=== PATIENT | female | born 1980 | race Caucasian/White ===

== ENCOUNTER 2021-09-28 18:16 | Emergency (ER) | payer OTHER, SELFPAY ==
[2021-09-28 18:46] VITALS: BP 104/64; PULSE 77; RESP 16; TEMP 36.7; O2SAT 98; BMI 34.0
[2021-09-28 23:57] LABS: Strep A Nucleic Acid Negative (Negative)
--- NOTE | 2021-09-28 23:59 | ED.EAR ---
HPI - Ear Problem General Chief complaint: Ear Problems Stated complaint: bilateral ear infection Time Seen by Provider: 09/28/21 22:17 Source: patient Mode of arrival: ambulatory History of Present Illness HPI Narrative: 41-year-old female with no significant past medical history presenting to the ED complaining of bilateral ear pain > right x6 days, and sore throat x today. Admits was seen by PCP on Sunday, reportedly had cerumen impaction and has been using OTC remedies without relief. Reports chronic drainage from ears, unchanged/not worsening. Also reports chills. Denies fever, hearing loss, cough, SOB/CP, difficulty/inability to swallow MD Complaint: ear pain Location: bilateral Duration: constant Severity: moderate Relieving factors: nothing Related Data Previous Rx's Medication Instructions Recorded cefdinir 300 mg capsule 300 mg PO BID 7 days #14 caps 09/28/21 ciprofloxacin 0.3 %-dexamethasone 4 drp otic (ears) BID 7 days #7.5 09/28/21 0.1 % ear drops,suspension mL (Ciprodex) Allergies Allergy/AdvReac Type Severity Reaction Status Date / Time Penicillins [PENICILLINS] Allergy Unknown Unknown Verified 09/28/21 18:45 Review of Systems Review of Systems: Constitutional: No Fever, No Chills, No Fatigue, No Malaise ENT/Mouth: No Hearing loss, + Ear Pain, No Nasal Congestion, No Sinus Pain, No Hoarseness, + sore throat, No Rhinorrhea, No Swallowing Difficulty Eyes: No Eye Pain, No Swelling, No Redness, No Vision Changes Cardiovascular: No Chest Pain, No SOB, No Edema, No Palpitations Respiratory: No Cough, No Sputum, No Dyspnea Gastrointestinal: No Nausea, No Vomiting, No Diarrhea, No Constipation, No Abdominal pain Genitourinary: No Dysuria, No Urinary Frequency, No Hematuria, No Flank Pain, No Urinary Flow Changes Musculoskeletal: No joint pain, No Myalgias, No Joint Swelling Skin: No Skin Lesions, No rash Neuro: No Weakness, No Dizziness, No Headache Yes all other systems are reviewed and are negative [facility] Past Medical History Attestation statement: The following information was validated with the patient. Social History Social History Advance Directives: No Advance Directives Information Provided: No Physical Exam Vital Signs: Vital Signs: Last Vital Signs Temp 98.0 F 09/28/21 18:46 Pulse 77 09/28/21 18:46 Resp 16 09/28/21 18:46 BP 104/64 09/28/21 18:46 Pulse Ox 98 09/28/21 18:46 O2 Del Method 09/28/21 18:46 BMI result Body Mass Index 34.0 Const: General: cooperative, healthy appearing, no acute distress, alert and awake Orientation/consciousness: patient oriented x3 Limitations: no limitations HEENT: Head: Yes normal to inspection and Yes atraumatic Ears: hearing grossly normal bilaterally, mastoids normal, Abnormal EAC present edema bilateral and EAC tenderness bilateral, external ear abnormal auricular tenderness bilateral and pain with movement of external ear bilateral and TM abnormal dull bilateral and wth effusion (bilaterally) General nose exam: Normal external nose present Face and sinus: Yes normal facial exam Mouth: Normal oral and palatal mucosa present Throat: Yes uvula midline, Yes abnormal tonsil (tonsil stone noted to R tonsil), No peritonsillar mass, No uvula laterally displaced and No uvular edema Eyes: General: appearance normal, both eyes and all related structures EOM: EOMs intact bilaterally Neck: Other: + periauricular and mild submandibular lymphadenopathy Neck: Yes normal visual inspection, Yes no meningeal signs and No anterior neck swelling Resp: Effort & Inspection: normal respiratory effort and no respiratory distress Cardio: Rate: regular rate Heart sounds: S1 normal heart sound present and S2 normal heart sound present Skin: Rashes: no rashes Wounds: no wounds Neuro: General: patient oriented x3, tone normal and no meningeal signs Gait exam (Neuro): Normal gait present Extrem: General: Yes normal to inspection Course Course Course Narrative: -rapid strep negative Patient discharged prior to results of COVID-19 and influenza testing, will call with positive results only MDM - Ear MDM Narrative Medical decision making narrative: 41-year-old female with no significant past medical history presenting to the ED complaining of bilateral ear pain > right x6 days, and sore throat x today. On exam vital signs stable, NAD/nontoxic appearing, physical exam as above consistent with otitis media and otitis externa. Mastoids WNL. Oropharynx with appreciable right-sided tonsil stone, no exudate or erythema, uvula midline. No evidence of [employer]. Talking in complete sentences. Patient with strong gag reflex unable to dislodge stone Plan: COVID-19/influenza testing, rapid strep, p.o. antibiotics and antibiotic ear drops Differential Diagnosis Differential diagnosis: Likely otitis externa, otitis media and cerumen impaction Medical Records Attestation: I reviewed the patient's medical records. Lab Data Attestation: I reviewed the patient's lab results. Labs: Lab Results 09/28/21 Range/Units 23:42 S. pyogenes GrpA KATIE Negative (Negative) Discharge Plan Discharge Clinical Impression: Otitis externa, Otitis media Patient Disposition: Home, Self-Care Instructions: Otitis Externa (ED), Ear Infection (ED) Additional Instructions: You have an internal and external ear infection. Augmentin is an antibiotic please take as prescribed for additional Ciprodex drops are antibiotic/steroid drops which will help with her external ear pain and swelling. Take Tylenol additionally for pain Please follow-up with her doctor Prescriptions: New cefdinir 300 mg capsule 300 mg PO BID 7 Days Qty: 14 0RF ciprofloxacin-dexamethasone [Ciprodex] 0.3-0.1 % drops,suspension 4 drp otic (ears) BID 7 Days Qty: 7.5 0RF Referrals: Tommy Howard [Physician] - 3 days
[2021-09-29 00:08] LABS: COVID-19 Test Negative (Negative); IDNOW Serial# 16C4AD1C; Influenza A Negative (Negative); Influenza B2 Negative (Negative)
== END 2021-09-29 00:32 | disposition home or self-care (01) ==
PROVIDERS: Physician Assistant; Emergency Provider Emergency Medicine Emergency Medical Services
DX: H60.93 Unspecified otitis externa, bilateral (principal); H66.93 Otitis media, unspecified, bilateral; Z20.822 Contact with and (suspected) exposure to COVID-19; J02.9 Acute pharyngitis, unspecified
CPT/HCPCS: 87502; 87635; 87651; 99283

== ENCOUNTER 2022-07-31 23:21 | Emergency (ER) | payer OTHER, SELFPAY ==
[2022-07-31 23:28] VITALS: BP 130/75; PULSE 79; RESP 18; TEMP 36.7; O2SAT 98; BMI 27.9
[2022-08-01] VITALS: BP 113/58; PULSE 99; RESP 18; TEMP 36.4; O2SAT 98
--- NOTE | 2022-08-01 00:20 | ED_ITS ---
HPI - General Adult General Chief complaint: OB Stated complaint: Engorged breast with pain Time Seen by Provider: 07/31/22 23:56 Source: patient Mode of arrival: ambulatory Limitations: no limitations History of Present Illness HPI narrative: 41 yold female presents to the ED bilateral engorged breasts. patient states she stopped breast feeding her son because he was biting her nipples. patient states she did not pump or try to self excrete the breast milk and now has bilateral breast pain due to engorged. patient denies any redness of the breast, fever, chills, chest pain, or shortness of breath Related Data Previous Rx's Medication Instructions Recorded cefdinir 300 mg capsule 300 mg PO BID 7 days #14 caps 09/28/21 ciprofloxacin 0.3 %-dexamethasone 4 drp otic (ears) BID 7 days #7.5 09/28/21 0.1 % ear drops,suspension mL (Ciprodex) cephalexin 500 mg capsule 500 mg PO QID 7 days #28 caps 08/01/22 ibuprofen 400 mg tablet 400 mg PO Q6H PRN fever or pain 7 08/01/22 days #28 tabs Allergies Allergy/AdvReac Type Severity Reaction Status Date / Time Penicillins [PENICILLINS] Allergy Unknown Unknown Verified 09/28/21 18:45 Review of Systems Review of Systems: bilateral breast engorgement Yes all other systems are reviewed and are negative [facility] Social History Social History Advance Directives: No Advance Directives Information Provided: Yes Physical Exam ED Vital Signs: Vital Signs - 24 hr 07/31/22 23:28 08/01/22 00:00 Temperature 98.1 F 97.6 F Pulse Rate 79 99 Respiratory Rate 18 18 Blood Pressure 130/75 113/58 L Pulse Oximetry 98 98 Oxygen Delivery Method Room Air Room Air BMI result Body Mass Index 27.9 Const General: cooperative, healthy appearing, comfortable, no acute distress, well developed, alert, awake and Physically active Orientation/consciousness: oriented to person, oriented to place, oriented to time and patient oriented x3 HENMT Head: Yes normal to inspection, Yes No palpable skull fracture present, Yes normocephalic and No atraumatic Eyes General: appearance normal, both eyes and all related structures Neck Neck: Yes normal visual inspection, Yes full ROM, Yes no lymphadenopathy, Yes no meningeal signs, Yes trachea midline, Yes supple, No anterior neck swelling and No tender Chest Other: Positive for bilateral breast swelling/engorgement. negative for warmth or erythema of the breasts. Breasts are tender. Chest palpation & inspection: normal inspection of the chest and normal palpation of entire chest wall Resp Effort & Inspection: normal respiratory effort and able to speak in complete sentences Auscultation: clear to auscultation bilaterally Cardio Jugular venous distension: no JVD Heart sounds: S1 normal heart sound present and S2 normal heart sound present GI Inspection: Yes normal to inspection and No abdominal wall ecchymosis Palpation (GI): Soft to palpation, not firm, nontender, no guarding and not rigid General: No CVA tenderness and Yes no CVA tenderness Back/Spine/Pelvis Back: no CVA tenderness, No CVA tenderness and No back tenderness Skin General skin exam: no rashes or lesions noted and elasticity normal Neuro General: oriented to person, oriented to place, oriented to time, patient oriented x3, gait normal, tone normal, moves all extremities, Normal light touch and pain sensation, no meningeal signs, no focal motor deficits, CN's II-XI intact bilaterally and normal sensation to monofilament Extrem General: Yes normal to inspection and Yes full ROM Psych Appearance: grossly normal, well kempt and not disheveled Course Course Course Narrative: 41 yold femalae with bilateral breast swelling/engorgement. Reevaluation(s) Reevaluation #1: Patient vital signs are stable. No need for labs imaging. Breasts are not red or warmth. patient educated on necessity for her to use a pump to secrete breast or for her son to resume . Patient informed she should not suddenly stop breast-feeding she has to wean. Patient educated on not wearing tight clothes. Drinking plenty of fluids. Taking Motrin or Tylenol. Patient also informed to use cold compress or warm compress to place on breast. Patient also informed to take warm shower. patient informed to use nipple butter. Although presently no signs of mastitis due to negative for fever, redness, or warmth will discharge with antibiotics incase engorgement progressed to mastitis. Time: 00:29 Medications Administered Discontinued Medications Generic Name Dose Route Start Last Admin Trade Name Freq PRN Reason Stop Dose Admin Ibuprofen 800 mg 08/01/22 00:19 08/01/22 00:23 Ibuprofen 800 Mg Tablet PO 08/01/22 00:20 800 mg ONCE ONE Administration Medical Decision Making Medical Decision Making [facility] Narrative: 39 yold female presents to the ED bilateral breast engorgement due to setting stopping of . Presently history physical exam does not indicate abscess, mastitis, of cellulitis. But was still discharged with antibiotics in case there is progression of breast engorgement to mastitis due to patient having swelling of breast and very painful. No labs imaging needed. Patient educated on supportive care to her believe breast engo Differential Diagnosis Differential Diagnoses: The differential diagnosis associated with the presentation includes ( Cellulitis, breast abscess, mastitis,) Admission/Observation Consideration of admission/observation: Escalation of care including admission/observation considered Tests considered The following testing was considered but not selected: ultrasound Prescription Management I considered prescription management with: Pain Medication and Antibiotic Discharge Plan Discharge Clinical Impression: Breast engorgement Patient Disposition: Home, Self-Care Instructions: and Breast Engorgement (ED) Additional Instructions: return to the ED immediately for any redness of the breast, worsening pain, increased swelling, fever, chills, chest pain, shortness of breath, or any other concerning symptoms. Please follow with the primary care provider and OBGYN. You are being discharged with antibiotics in case breast engorgement leads to mastitis. Resume or use a pump. Recommend warm showers, drinking plenty of fluids, and placing cold or warm compress on breast. Avoid tight- fitting clothes or bras. Prescriptions: New cephalexin 500 mg capsule 500 mg PO QID 7 Days Qty: 28 0RF ibuprofen 400 mg tablet 400 mg PO Q6H PRN (Reason: fever or pain) 7 Days Qty: 28 0RF No Action cefdinir 300 mg capsule 300 mg PO BID 7 Days Qty: 14 0RF ciprofloxacin-dexamethasone [Ciprodex] 0.3-0.1 % drops,suspension 4 drp otic (ears) BID 7 Days Qty: 7.5 0RF Referrals: Te Mcghee MD [Physician] - (Breast engorgement) Interventions: ED Discharge Assessment Last Done: 08/01/22 00:36 Discharge Date/Time: 08/01/22 00:41 Print Language: Georgian
--- NOTE | 2022-08-01 00:20 | PC.NURSE ---
Pt given warm compresses to place on breasts at this time
[2022-08-01] MEDS: Ibuprofen 800 MG TABLET PO (00:23)
== END 2022-08-01 00:41 | disposition home or self-care (01) ==
PROVIDERS: Emergency Provider Internal Medicine
DX: N64.59 Other signs and symptoms in breast (principal)
CPT/HCPCS: 99283

== ENCOUNTER 2022-12-05 18:48 | Emergency (ER) | payer OTHER, SELFPAY ==
[2022-12-05 18:59] VITALS: BP 109/57; PULSE 74; RESP 18; TEMP 36.9; O2SAT 97; BMI 35.0
--- NOTE | 2022-12-05 18:59 | ED_ITS ---
HPI - Ear Problem General Chief complaint: Ear Problems Stated complaint: ear infection Time Seen by Provider: 12/05/22 19:04 Source: patient, RN notes reviewed and old records reviewed Mode of arrival: ambulatory History of Present Illness HPI Narrative: 42-year-old female with no significant past medical history presenting to the ED complaining of bilateral ear pain x 3 days worsening today w/ chills. Admits to decreased hearing & yellow drainage from ears. Reports pain radiates throat. denies fever, cough, SOB, difficulty/inability to swallow, recent swimming MD Complaint: ear pain, ear discharge and decreased hearing Related Data Previous Rx's Medication Instructions Recorded cefdinir 300 mg capsule 300 mg PO BID 7 days #14 caps 09/28/21 ciprofloxacin 0.3 %-dexamethasone 4 drp otic (ears) BID 7 days #7.5 09/28/21 0.1 % ear drops,suspension mL (Ciprodex) cephalexin 500 mg capsule 500 mg PO QID 7 days #28 caps 08/01/22 ibuprofen 400 mg tablet 400 mg PO Q6H PRN fever or pain 7 08/01/22 days #28 tabs ciprofloxacin 0.3 %-dexamethasone 4 drp otic (ears) BID 7 days #7.5 12/05/22 0.1 % ear drops,suspension mL (Ciprodex) Allergies Allergy/AdvReac Type Severity Reaction Status Date / Time Penicillins [PENICILLINS] Allergy Unknown Unknown Verified 09/28/21 18:45 Review of Systems Review of Systems: Constitutional:No Fever, No Chills ENT/Mouth: + Ear Pain, No Nasal Congestion, No Sinus Pain, No Hoarseness, + sore throat, No Rhinorrhea, No Swallowing Difficulty Cardiovascular: No Chest Pain, No SOB Respiratory: No Cough, No Sputum Gastrointestinal: No Nausea, No Vomiting, No Abdominal pain Musculoskeletal: No joint pain Skin: No Skin Lesions, No rash Neuro: No Weakness Yes all other systems are reviewed and are negative Constitutional: Constitutional: Reports as per [facility] Past Medical History Attestation statement: The following information was validated with the patient. Source: old records reviewed Physical Exam Vital Signs: Vital Signs: Last Vital Signs Temp 98.5 F 12/05/22 18:59 Pulse 74 12/05/22 18:59 Resp 18 12/05/22 18:59 BP 109/57 L 12/05/22 18:59 Pulse Ox 97 12/05/22 18:59 O2 Del Method Room Air 12/05/22 18:59 BMI result Body Mass Index 35.0 Const: General: cooperative, healthy appearing and no acute distress Orientation/consciousness: patient oriented x3 Limitations: no limitations HEENT: Head: Yes normal to inspection and Yes atraumatic Ears: hearing grossly normal bilaterally, mastoids normal, Abnormal EAC present edema bilateral, EAC tenderness bilateral and otic discharge (bilaterally) occluded by discharge bilateral and external ear abnormal auricular tenderness bilateral General nose exam: Normal external nose present Face and sinus: Yes normal facial exam Mouth: Normal oral and palatal mucosa present and no drooling Throat: Yes posterior oropharynx normal, Yes tonsils normal, Yes uvula midline, No peritonsillar mass and No uvular edema Eyes: General: appearance normal, both eyes and all related structures EOM: EOMs intact bilaterally Neck: Neck: Yes normal visual inspection, Yes no meningeal signs and No anterior neck swelling Resp: Effort & Inspection: normal respiratory effort and no respiratory distress Cardio: Rate: regular rate Skin: Rashes: no rashes Wounds: no wounds Neuro: General: patient oriented x3, tone normal and no meningeal signs Cranial nerves: Yes CN's II-XII intact bilaterally Gait exam (Neuro): Normal gait present Extrem: General: Yes normal to inspection Medical Decision Making Medical Decision Making MDM Narrative: 42-year-old female with no significant past medical history presenting to the ED complaining of bilateral ear pain x 3 days worsening today w/ chills. On exam vital signs stable, NAD, nontoxic appearing, physical exam consistent with bilateral otitis externa. Mastoids WNL, TMs obscured by debris/external canal swelling. Oropharynx WNL, uvula midline, talking in complete sentences. Low suspicion for otitis media, mastoiditis, chronic otitis externa, pharyngitis Plan: Ciprodex drops, ENT follow-up Results discussed with patient including worrisome signs and symptoms and strict return precautions, and when to return to the emergency department. They verbalized understanding and feel safe for discharge at this time. Differential Diagnosis Differential Diagnoses: The differential diagnosis associated with the presentation includes As above External Record Review External record reviewed: Inpatient record, Office record, Outpatient record, Prior outpatient labs, Prior outpatient radiology, Primary care record and Outside ED record Tests considered The following testing was considered but not selected: As above Prescription Management I considered prescription management with: Pain Medication and Antibiotic Discharge Plan Discharge Clinical Impression: Otitis externa Patient Disposition: Home, Self-Care Instructions: Otitis Externa (DC) Additional Instructions: You have bilateral external ear infections Ciprodex is an antibiotic steroid drop please use as prescribed Take Tylenol and Motrin for pain If symptoms persist or worsen, you have fever, persistent or unremitting pain re turn to the ED Prescriptions: New ciprofloxacin-dexamethasone [Ciprodex] 0.3-0.1 % drops,suspension 4 drp otic (ears) BID 7 Days Qty: 7.5 0RF No Action cefdinir 300 mg capsule 300 mg PO BID 7 Days Qty: 14 0RF ciprofloxacin-dexamethasone [Ciprodex] 0.3-0.1 % drops,suspension 4 drp otic (ears) BID 7 Days Qty: 7.5 0RF cephalexin 500 mg capsule 500 mg PO QID 7 Days Qty: 28 0RF ibuprofen 400 mg tablet 400 mg PO Q6H PRN (Reason: fever or pain) 7 Days Qty: 28 0RF Referrals: Tommy Howard [Physician] -
== END 2022-12-05 19:22 | disposition home or self-care (01) ==
LOC: HO.ED 19:22
PROVIDERS: Emergency Provider Emergency Medicine
DX: H60.93 Unspecified otitis externa, bilateral (principal); H92.03 Otalgia, bilateral
CPT/HCPCS: 99282; 99283

== ENCOUNTER 2023-06-07 21:29 | Emergency (ER) | payer OTHER, SELFPAY ==
[2023-06-07 22:01] VITALS: BP 114/68; PULSE 66; RESP 18; TEMP 36.8; O2SAT 99; BMI 36.3
--- NOTE | 2023-06-08 00:12 | PC.NURSE ---
pt was using her ear buds and noticed that a small solitario piece came off. pt thinks this might be in her ear, pt states her ear feels blocked.
[2023-06-08 00:13] VITALS: BP 116/66; PULSE 70; RESP 16; TEMP 36.8; O2SAT 97
--- NOTE | 2023-06-08 01:01 | ED.EAR ---
HPI - Ear Problem General Chief complaint: Ear Problems Stated complaint: rt ear pain Time Seen by Provider: 06/07/23 23:57 Source: patient Mode of arrival: ambulatory Limitations: no limitations History of Present Illness HPI Narrative: Patient comes to the emergency room complaining of foreign body sensation in the right ear. Patient states that she believes that the tip of her ear bud is stuck in her ear but she has not sure. Patient noticed that the tip is missing and is not sure if it is inside of her ear. Patient denies pain. Related Data Previous Rx's Medication Instructions Recorded cefdinir 300 mg capsule 300 mg PO BID 7 days #14 caps 09/28/21 ciprofloxacin 0.3 %-dexamethasone 4 drp otic (ears) BID 7 days #7.5 09/28/21 0.1 % ear drops,suspension mL (Ciprodex) cephalexin 500 mg capsule 500 mg PO QID 7 days #28 caps 08/01/22 ibuprofen 400 mg tablet 400 mg PO Q6H PRN fever or pain 7 08/01/22 days #28 tabs ciprofloxacin 0.3 %-dexamethasone 4 drp otic (ears) BID 7 days #7.5 12/05/22 0.1 % ear drops,suspension mL (Ciprodex) Allergies Allergy/AdvReac Type Severity Reaction Status Date / Time Penicillins [PENICILLINS] Allergy Unknown Unknown Verified 09/28/21 18:45 Review of Systems Review of Systems: Constitutional : No Weight loss, No Fever, No Chills, No Night Sweats, No Fatigue, No Malaise ENT/Mouth : No Hearing loss, No Ear Pain, Foreign body sensation in the right ear, No Nasal Congestion, No Sinus Pain, No Hoarseness, No sore throat, No Rhinorrhea, No Swallowing Difficulty Eyes: No Eye Pain, No Swelling, No Redness, No Foreign Body, No Discharge, No Vision Changes Cardiovascular : No Chest Pain, No SOB, No Dyspnea on Exertion, No Orthopnea, No Edema, No Palpitations Respiratory : No Cough, No Sputum, No Wheezing, No Smoke Exposure, No Dyspnea Gastrointestinal : No Nausea, No Vomiting, No Diarrhea, No Constipation, No abdominal Pain, No Hematochezia, No Melena Genitourinary : no irregular bleeding, No Dysuria, No Urinary Frequency, No Hematuria, No Urinary Incontinence, No Urgency, No Flank Pain, No Urinary Flow Changes, No Hesitancy Musculoskeletal : No joint pain, No Myalgias, No Joint Swelling Skin : No Skin Lesions, No rash Neuro : No Weakness, No Numbness, No Paresthesias, No Loss of Consciousness, No Dizziness, No Headache Psych : No Anxiety/Panic, No Depression, No SI/HI/AH/VH, No Social Issues, Heme/Lymph: No Bruising, No Bleeding,No Lymphadenopathy Endocrine : No Polyuria, No Polydipsia, No Temperature Intolerance [facility] Social History Social History Advance Directives: No Advance Directives Information Provided: No Physical Exam Vital Signs: Vital Signs: Last Vital Signs Temp 98.3 F 06/08/23 00:13 Pulse 70 06/08/23 00:13 Resp 16 06/08/23 00:13 BP 116/66 06/08/23 00:13 Pulse Ox 97 06/08/23 00:13 O2 Del Method Room Air 06/08/23 00:13 BMI result Body Mass Index 36.3 Const: Other: Appearance: Alert. Oriented X3. No acute distress. Eyes: Pupils equal, round and reactive to light. ENT: Pharynx normal. normal tympanic membranes, no irritation, no foreign body present in either ear Neck: Normal inspection. Neck supple. No lymph nodes noted. No crepitus CVS: Normal heart rate and rhythm. Pulses normal. Normal S1 and S2 Respiratory: No respiratory distress. Breath sounds normal. No Wheezing. No rales Abdomen: Soft and nontender. No rigidity. No distention. Skin: Skin warm and dry. Normal skin color. Normal skin turgor. Extremities: No lower extremity edema. No Lacerations. No Rash Neuro: Oriented X 3. No motor deficit. No sensory deficit. Moving all extremities. No slurred speech. CN 2 through 12 grossly intact Psych: calm, cooperative, normal affect Medical Decision Making Medical Decision Making MDM Narrative: - I discussed with the patient that she has does not have a foreign body in her ear. Differential Diagnosis Differential Diagnoses: The differential diagnosis associated with the presentation includes ( Foreign body, otitis, otalgia) Discharge Plan Discharge Clinical Impression: Foreign body sensation in ear canal Patient Disposition: Home, Self-Care Instructions: Ear Foreign Body (ED) Additional Instructions: Please follow-up with your primary care physician tomorrow. If you have any worsening or new symptoms, please return to the emergency room or call 911 Prescriptions: No Action cefdinir 300 mg capsule 300 mg PO BID 7 Days Qty: 14 0RF ciprofloxacin-dexamethasone [Ciprodex] 0.3-0.1 % drops,suspension 4 drp otic (ears) BID 7 Days Qty: 7.5 0RF cephalexin 500 mg capsule 500 mg PO QID 7 Days Qty: 28 0RF ibuprofen 400 mg tablet 400 mg PO Q6H PRN (Reason: fever or pain) 7 Days Qty: 28 0RF ciprofloxacin-dexamethasone [Ciprodex] 0.3-0.1 % drops,suspension 4 drp otic (ears) BID 7 Days Qty: 7.5 0RF
[2023-06-08 01:29] VITALS: BP 116/66; PULSE 76; RESP 16; TEMP 36.8; O2SAT 97
== END 2023-06-08 01:30 | disposition home or self-care (01) ==
PROVIDERS: Emergency Provider Emergency Medicine; PCP Internal Medicine
DX: H92.01 Otalgia, right ear (principal)
CPT/HCPCS: 99282; 99283

== ENCOUNTER 2023-10-28 22:08 | Emergency (ER) | payer OTHER, SELFPAY ==
[2023-10-28 22:20] VITALS: BP 129/76; PULSE 90; RESP 18; TEMP 36.4; O2SAT 98; BMI 35.5
--- NOTE | 2023-10-28 23:01 | ED.GENADULT ---
HPI - General Adult General Chief complaint: General Medical Stated complaint: possible insect bite/sting on foot 3 weeks ago Time Seen by Provider: 10/28/23 22:48 History of Present Illness HPI narrative: Patient is a 43-year-old female presents today having initially an itch to the medial aspect of the right ankle. The rash has continue. Is extremely itchy. Patient has been gardening outside. Denies any fever chills. No systemic complaints. She is from home. Related Data Previous Rx's ?Medication ?Instructions ?Recorded cefdinir 300 mg capsule 300 mg PO BID 7 days #14 caps 09/28/21 ciprofloxacin 0.3 %-dexamethasone 4 drp otic (ears) BID 7 days #7.5 09/28/21 0.1 % ear drops,suspension mL (Ciprodex) cephalexin 500 mg capsule 500 mg PO QID 7 days #28 caps 08/01/22 ibuprofen 400 mg tablet 400 mg PO Q6H PRN fever or pain 7 08/01/22 days #28 tabs ciprofloxacin 0.3 %-dexamethasone 4 drp otic (ears) BID 7 days #7.5 12/05/22 0.1 % ear drops,suspension mL (Ciprodex) triamcinolone acetonide 0.5 % 1 appl topical BID rash #15 grams 10/28/23 topical cream Allergies Allergy/AdvReac Type Severity Reaction Status Date / Time Penicillins [PENICILLINS] Allergy Unknown Unknown Verified 10/28/23 22:24 Review of Systems Review of Systems: Positive rash to the right ankle inner aspect Yes all other systems are reviewed and are negative [facility] Past Medical History Attestation statement: The following information was validated with the patient. Social History Social History Do you have a plan to hurt others: No Plan Physical Exam ED Vital Signs: Vital Signs - 24 hr 10/28/23 22:20 Temperature 97.6 F Pulse Rate 90 Respiratory Rate 18 Blood Pressure 129/76 Pulse Oximetry 98 Oxygen Delivery Method Room Air BMI result Body Mass Index 35.5 Appearance: Alert. Oriented X3. No acute distress. Eyes: Pupils equal, round and reactive to light. ENT: Pharynx normal. Neck: Normal inspection. Neck supple. No lymph nodes noted. No crepitus CVS: Normal heart rate and rhythm. Pulses normal. Normal S1 and S2 Respiratory: No respiratory distress. Breath sounds normal. No Wheezing. No rales Abdomen: Soft and nontender. No rigidity. No distention. good BS x4 Skin: Localized rash over the right ankle, inner aspect approximately 3 cm x 3 cm. Seems to be extremely pruritic red raised Extremities: No lower extremity edema. Neurovascular intact to all extremities. No Lacerations. No Rash Neuro: Oriented X 3. No motor deficit. No sensory deficit. Moving all extermities. No slurred speech Medical Decision Making Medical Decision Making MDM Narrative: Patient's symptoms consistent with poison rachna. Will start patient on some topical steroid as symptom is fairly localized. Will have patient follow-up on an outpatient basis in no acute distress no systemic complaints in stable condition Differential Diagnosis Differential Diagnoses: The differential diagnosis associated with the presentation includes Poison rachna, allergic reaction Admission/Observation Consideration of admission/observation: Escalation of care including admission/observation considered Discharge Plan Discharge Clinical Impression: Poison rachna dermatitis Patient Disposition: Home, Self-Care Instructions: Poison Rachna (ED) Prescriptions: New triamcinolone acetonide 0.5 % cream 1 appl topical BID Qty: 15 0RF No Action cefdinir 300 mg capsule 300 mg PO BID 7 Days Qty: 14 0RF ciprofloxacin-dexamethasone [Ciprodex] 0.3-0.1 % drops,suspension 4 drp otic (ears) BID 7 Days Qty: 7.5 0RF cephalexin 500 mg capsule 500 mg PO QID 7 Days Qty: 28 0RF ibuprofen 400 mg tablet 400 mg PO Q6H PRN (Reason: fever or pain) 7 Days Qty: 28 0RF ciprofloxacin-dexamethasone [Ciprodex] 0.3-0.1 % drops,suspension 4 drp otic (ears) BID 7 Days Qty: 7.5 0RF Referrals: Tammie Bustamante MD [Primary Care Provider] - 10/31/23 Print Language: Japanese
[2023-10-28 23:28] VITALS: BP 129/76; PULSE 90; RESP 18; TEMP 36.4; O2SAT 98
== END 2023-10-28 23:29 | disposition home or self-care (01) ==
PROVIDERS: Emergency Provider Emergency Medicine Emergency Medical Services; PCP Internal Medicine
DX: L23.7 Allergic contact dermatitis due to plants, except food (principal)
CPT/HCPCS: 99282

== ENCOUNTER 2024-05-11 12:47 | Emergency (ER) | payer OTHER, SELFPAY ==
--- NOTE | ~2024-05-11 | US_ITS ---
CLINICAL HISTORY: epigastric abd pain rad back US abdomen limited, with color and pulsed Doppler of the portal vein: Comparison: None Findings: Liver is enlarged measuring 19 cm in length with increased echogenicity suggestive of fatty infiltration. Main portal vein Doppler shows antegrade flow. Gallbladder is normal in size. There are no calculi. Gallbladder wall thickness is normal. Common bile duct diameter is 2 mm. No sonographic Holland sign. Right kidney measures 11.6 cm in length. No ascites in the right upper quadrant. Impression: Normal right upper quadrant ultrasound This document has been electronically signed by: Sloan Jamison MD on 05/11/2024 14:16:44
[2024-05-11 12:56] VITALS: BP 118/66; PULSE 73; RESP 18; TEMP 36.6; O2SAT 97; BMI 36.0
--- NOTE | 2024-05-11 12:58 | ED_ITS ---
HPI - Abdominal Pain General Chief Complaint: Abdominal Pain Stated Complaint: pain (gallbladder) Time Seen by Provider: 05/11/24 16:22 Source: patient, RN notes reviewed and old records reviewed Mode of arrival: ambulatory History of Present Illness ED Provider: Angle Devries PA-C HPI narrative: 43-year-old female with no significant past medical history presenting to the ED complaining of epigastric abdominal pain radiating to back x3 days. Admits was seen at urgent care yesterday prescribed omeprazole without relief. Denies CP/SOB, nausea, vomiting, diarrhea, dysuria/hematuria Related Data Previous Rx's ?Medication ?Instructions ?Recorded cefdinir 300 mg capsule 300 mg PO BID 7 days #14 caps 09/28/21 ciprofloxacin 0.3 %-dexamethasone 4 drp otic (ears) BID 7 days #7.5 09/28/21 0.1 % ear drops,suspension mL (Ciprodex) cephalexin 500 mg capsule 500 mg PO QID 7 days #28 caps 08/01/22 ibuprofen 400 mg tablet 400 mg PO Q6H PRN fever or pain 7 08/01/22 days #28 tabs ciprofloxacin 0.3 %-dexamethasone 4 drp otic (ears) BID 7 days #7.5 12/05/22 0.1 % ear drops,suspension mL (Ciprodex) triamcinolone acetonide 0.5 % 1 appl topical BID rash #15 grams 10/28/23 topical cream aluminum-mag hydroxide-simethicone 5 ml PO 5XD PRN dyspepsia #30 mL 05/11/24 200 mg-200 mg-20 mg/5 mL oral susp (Maalox Advanced) Allergies Allergy/AdvReac Type Severity Reaction Status Date / Time Penicillins [PENICILLINS] Allergy Unknown Unknown Verified 05/11/24 13:00 Review of Systems Review of Systems Yes all other systems are reviewed and are negative Constitutional: Reports as per [facility] Past Medical History Attestation statement: The following information was validated with the patient. Source: old records reviewed Social History Social History Advance Directives: No Advance Directives Information Provided: Yes Physical Exam ED Vital Signs: Vital Signs - 24 hr 05/11/24 12:56 05/11/24 16:19 05/11/24 16:46 Temperature 97.9 F 97.8 F 97.8 F Pulse Rate 73 75 75 Respiratory Rate 18 16 16 Blood Pressure 118/66 102/68 102/68 Pulse Oximetry 97 98 98 Oxygen Delivery Method Room Air Room Air Room Air BMI result Body Mass Index 36.0 Const General: cooperative, healthy appearing and no acute distress Orientation/consciousness: patient oriented x3 Limitations: no limitations HENMT Head: Yes normal to inspection and Yes atraumatic Ears: hearing grossly normal bilaterally General nose exam: Normal external nose present Face and sinus: Yes normal facial exam Eyes General: appearance normal, both eyes and all related structures EOM: EOMs intact bilaterally Neck Neck: Yes normal visual inspection and Yes no meningeal signs Resp Effort & Inspection: normal respiratory effort and no respiratory distress Auscultation: clear to auscultation bilaterally Cardio Rate: regular rate Heart sounds: S1 normal heart sound present and S2 normal heart sound present GI Inspection: Yes normal to inspection Palpation (GI): Soft to palpation, nontender, no guarding and not rigid General: Yes no CVA tenderness Back/Spine/Pelvis Back: no CVA tenderness Skin Rashes: no rashes Wounds: no wounds Neuro General: patient oriented x3, tone normal and no meningeal signs Cranial nerves: Yes CN's II-XII intact bilaterally Gait exam (Neuro): Normal gait present Extrem General: Yes normal to inspection Course Course Course Narrative: This is a Rapid Medical Exam performed in triage by Angle Devries PA-C. Full HPI, ROS and PE to be performed by primary ED provider. 43yo F w/no significant past medical history presenting to the ED c/o epigastric abdominal radiating to back x 3 days. Admits was seen at urgent care yesterday prescribed omeprazole without relief. denies N/V/D PE: Abdomen is soft and nontender, no rebound or guarding Plan: EKG, labs, US, (does not want to give urine as give at urgent care yesterday) -1700--no leukocytosis. AST/ALT mildly elevated. Troponin negative. US abdomen limited Impression: Normal right upper quadrant ultrasound 171- on re-evaluation patient reports symptomatic improvement, denies pain at present. Abdomen is soft and nontender. Feels comfortable for discharge home at this time. Recommended close GI/PCP follow-up > Results discussed with patient including worrisome signs and symptoms and strict return precautions, and when to return to the emergency department. They verbalized understanding and feel safe for discharge at this time. Medical Decision Making Medical Decision Making [facility] Narrative: 43-year-old female with no significant past medical history presenting to the ED complaining of epigastric abdominal pain radiating to back x3 days. On exam vital signs stable, NAD, nontoxic appearing, lungs CTA, abdomen soft/nontender, no rash/skin deformity. Concern for pancreatitis vs cholecystitis/lithiasis vs atypical ACS vs ?Renal stone although lower suspicion at this time. Low suspicion for dissection or pneumonia Plan: EKG, labs, patient refused UA as was done at urgent care yesterday, ultrasound, re-evaluate Please refer to course for remaining clinical decision making, interpretation of labs/imaging results, and discussions with consultants and/or family members. Differential Diagnosis Differential Diagnoses: The differential diagnosis associated with the presentation includes As above Admission/Observation Consideration of admission/observation: Escalation of care including admission/observation considered Lab Data [facility] Lab Attestation statement: I reviewed the patient's lab results. 05/11/24 13:12 05/11/24 13:12 Labs: Lab Results 05/11/24 Range/Units 13:12 WBC 8.6 (4.8-10.8) X10*3/uL RBC 4.43 (4.20-5.50) X10*6/uL Hgb 13.1 (12.0-16.0) g/dl Hct 37.7 (37.0-47.0) % MCV 85.1 (80.0-98.0) fL MCH 29.6 (27.0-33.0) pg MCHC 34.7 (31.0-35.0) g/dl RDW 12.1 (11.0-16.0) % Plt Count 280 (160-400) X10*3/uL MPV 9.4 (9.4-12.3) fL Immature Gran % (Auto) 0.5 H (0.0-0.4) % Neut % (Auto) 55.0 (45-73) % Lymph % (Auto) 33.6 (20-40) % [place] % (Auto) 8.6 (2-11) % Eos % (Auto) 1.6 (0-4) % Baso % (Auto) 0.7 (0-2) % Lymph # (Auto) 2.9 (1.2-4.9) X10*3/uL [place] # (Auto) 0.7 (0.1-1.2) X10*3/uL Eos # (Auto) 0.1 (0.0-0.4) X10*3/uL Baso # (Auto) 0.1 (0.0-0.2) X10*3/uL Abs Immat Gran (auto) 0.04 H (0.00-0.03) X10*3/uL Absolute Neuts (auto) 4.7 (2.0-8.3) x10*3/uL Absolute Nucleated RBC 0.000 (0.0-0.012) X10*3/uL Nucleated RBC % (auto) 0.0 (0.0-0.2) /100WBC Sodium 140 (135-145) mmol/L Potassium 3.9 (3.3-5.1) mmol/L Chloride 110 H (96-108) mmol/L Carbon Dioxide 24 (22-29) mmol/L Anion Gap 10 L (12-20) BUN 14 (9-16) mg/dL Creatinine 0.73 (0.5-1.4) mg/dL Estim Creat Clear Calc 111.2 Estimated GFR > 60 Random Glucose 79 (60-115) mg/dL Calcium 9.3 (8.4-10.2) mg/dL Magnesium 2.2 (1.6-2.6) mg/dL Total Bilirubin 0.3 (0.0-1.0) mg/dL Direct Bilirubin 0.1 (0.0-0.5) mg/dL AST 32 H (5-31) U/L ALT 56 H (0-31) U/L Alkaline Phosphatase 66 (39-117) U/L Troponin I High Sens < 2.7 (<3.5-17.0) ng/L Total Protein 7.5 (6.5-8.0) g/dL Albumin 4.2 (3.5-5.0) g/dL Lipase 16 (8-78) U/L Independent Interpretation I performed an independent interpretation of an: EKG (My interpretation EKG normal sinus rhythm rate of 76. No previous EKGs to compare. No STEMI) and Ultrasound Radiology Impression Discussion of test interpretation with radiology: I have reviewed the radiologist's reading. External Record Review External record reviewed: Inpatient record, Office record, Outpatient record, Prior outpatient labs, Prior outpatient radiology, Primary care record and Outside ED record Tests considered The following testing was considered but not selected: As above Prescription Management I considered prescription management with: Pain Medication and Antiviral Chronic Conditions Patient?s care impacted by: Other Discharge Plan Discharge Clinical Impression: Epigastric abdominal pain Patient Disposition: Home, Self-Care Instructions: Abdominal Pain (ED) Additional Instructions: Your blood work and ultrasound are reassuring Continue taking previously prescribed omeprazole In addition you may take Maalox Please have close follow-up with your doctor as well as Gastroenterology, call to make an appointment If her symptoms persist or worsen or become unbearable, you are unable to eat or drink return to the ED Prescriptions: New alum-mag hydroxide-simeth [Maalox Advanced] 200-200-20 mg/5 mL suspension 5 ml PO 5XD PRN (Reason: dyspepsia) Qty: 30 0RF Rx Instructions: administer between meals and at bedtime No Action cefdinir 300 mg capsule 300 mg PO BID 7 Days Qty: 14 0RF ciprofloxacin-dexamethasone [Ciprodex] 0.3-0.1 % drops,suspension 4 drp otic (ears) BID 7 Days Qty: 7.5 0RF cephalexin 500 mg capsule 500 mg PO QID 7 Days Qty: 28 0RF ibuprofen 400 mg tablet 400 mg PO Q6H PRN (Reason: fever or pain) 7 Days Qty: 28 0RF ciprofloxacin-dexamethasone [Ciprodex] 0.3-0.1 % drops,suspension 4 drp otic (ears) BID 7 Days Qty: 7.5 0RF triamcinolone acetonide 0.5 % cream 1 appl topical BID Qty: 15 0RF Referrals: [facility] [Provider Group] - 1 week Interventions: ED Discharge Assessment Last Done: 05/11/24 16:46 Discharge Date/Time: 05/11/24 16:47 Print Language: Maori
--- NOTE | 2024-05-11 13:02 | ECG_ITS ---
Test Reason : EPIGASTRIC ABDOMINAL PAIN Blood Pressure : */* mmHG Vent. Rate : 76 BPM Atrial Rate : 76 BPM P-R Int : 148 ms QRS Dur : 86 ms QT Int : 398 ms P-R-T Axes : 21 -2 21 degrees QTcB Int : 447 ms Normal sinus rhythm Normal ECG No previous ECGs available Referred By: Angle Devries Electronically Signed By: KATIUSKA GUAJARDO
[2024-05-11 13:17] LABS: MANUAL DIFF FLAG NO
[2024-05-11 13:19] LABS: Basophils Absolute Auto 0.1 X10*3/uL (0.0-0.2); Basophils Percent Auto 0.7 % (0-2); Eosinophils Absolute Auto 0.1 X10*3/uL (0.0-0.4); Eosinophils Percent Auto 1.6 % (0-4); Hematocrit 37.7 % (37.0-47.0); Hemoglobin 13.1 g/dl (12.0-16.0); Imm Gran Abs Auto 0.04 X10*3/uL (0.00-0.03); Imm Gran Pct Auto 0.5 % (0.0-0.4); Lymphocytes Absolute Auto 2.9 X10*3/uL (1.2-4.9); Lymphocytes Percent Auto 33.6 % (20-40); Mean Corpuscular HGB Conc 34.7 g/dl (31.0-35.0); Mean Corpuscular Hemoglobin 29.6 pg (27.0-33.0); Mean Corpuscular Volume 85.1 fL (80.0-98.0); Mean Platelet Volume 9.4 fL (9.4-12.3); Monocytes Absolute Auto 0.7 X10*3/uL (0.1-1.2); Monocytes Percent Auto 8.6 % (2-11); Neutrophils Absolute Auto 4.7 x10*3/uL (2.0-8.3); Platelet Count 280 X10*3/uL (160-400); Red Blood Count 4.43 X10*6/uL (4.20-5.50); Red Cell Distribution Width 12.1 % (11.0-16.0); White Blood Count 8.6 X10*3/uL (4.8-10.8)
[2024-05-11 13:35] LABS: Alanine Aminotransferase 56 U/L (0-31); Albumin Level 4.2 g/dL (3.5-5.0); Alkaline Phosphatase 66 U/L (39-117); Anion Gap 10 (12-20); Aspartate Amino Transferase 32 U/L (5-31); Bilirubin Direct 0.1 mg/dL (0.0-0.5); Bilirubin Total 0.3 mg/dL (0.0-1.0); Blood Urea Nitrogen 14 mg/dL (9-16); Calcium 9.3 mg/dL (8.4-10.2); Carbon Dioxide 24 mmol/L (22-29); Chloride 110 mmol/L (96-108); Creatinine Clr Calc Pharmacy 111.2; Estimated Glomerular Filt Rate > 60; Glucose Random 79 mg/dL (60-115); Lipase 16 U/L (8-78); Magnesium 2.2 mg/dL (1.6-2.6); Potassium 3.9 mmol/L (3.3-5.1); Sodium 140 mmol/L (135-145); Total Protein 7.5 g/dL (6.5-8.0)
[2024-05-11 13:42] LABS: Troponin-I High Sensitivity < 2.7 ng/L (<3.5-17.0)
[2024-05-11 16:19] VITALS: BP 102/68; PULSE 75; RESP 16; TEMP 36.6; O2SAT 98
[2024-05-11 16:46] VITALS: BP 102/68; PULSE 75; RESP 16; TEMP 36.6; O2SAT 98
== END 2024-05-11 16:47 | disposition home or self-care (01) ==
PROVIDERS: Physician Assistant; Emergency Provider Emergency Medicine
DX: R10.13 Epigastric pain (principal); M54.50 Low back pain, unspecified; Z79.899 Other long term (current) drug therapy
CPT/HCPCS: 36415; 76705; 80048; 80076; 83690; 83735; 84484; 85025; 93005; 99283; 99284

== ENCOUNTER → 2024-05-11 13:01 | Outpatient (BNV) | payer OTHER, SELFPAY | PROVIDERS: Visit Provider Radiology Diagnostic Radiology | DX: R10.13 Epigastric pain (principal); M54.9 Dorsalgia, unspecified | CPT/HCPCS: 76705 ==

== ENCOUNTER → 2024-05-11 13:02 | Outpatient (BNV) | payer OTHER, SELFPAY | PROVIDERS: Emergency Provider Emergency Medicine; Visit Provider Internal Medicine | DX: R10.13 Epigastric pain (principal) | CPT/HCPCS: 93010 ==